=== PATIENT | female | born 1985 | race Caucasian/White ===

== ENCOUNTER 2022-12-06 05:30 | Inpatient (IN) | payer BC ==
[2022-12-06] MEDS ORDERED: Ibuprofen 800 MG TAB PO PRN (18:59)
[2022-12-06] MEDS ORDERED: Methylergonovine 0.2 MG/ML VIAL IM PRN (18:59)
[2022-12-06] MEDS ORDERED: Promethazine HCl 25 MG/ML VIAL IM PRN (18:59)
[2022-12-06] MEDS ORDERED: Diphenoxylate HCl/Atropine Tablet PO PRN ×2 (18:59)
[2022-12-06] MEDS ORDERED: HYDROcodone/Acetaminophen 5/325 mg Tablet PO PRN ×2 (18:59)
[2022-12-06] MEDS ORDERED: Lidocaine 1% (PF) 30 ML VIAL SC PRN (18:59)
[2022-12-06] MEDS ORDERED: Misoprostol 200 MCG TAB PR PRN (18:59)
[2022-12-06] MEDS ORDERED: Carboprost 250 MCG/ML AMP IM PRN (18:59)
[2022-12-06] MEDS ORDERED: Butorphanol Tartrate 1 MG/ML VIAL SLOW IVP PRN (18:59)
[2022-12-06] MEDS ORDERED: hydrALAZINE 20 MG/ML VIAL SLOW IVP PRN (18:59)
[2022-12-06] MEDS ORDERED: NS w/ Oxytocin 30 units 500 ML IV SCH ×2 (18:59)
[2022-12-06] MEDS ORDERED: Ondansetron PF 4 MG/2 ML Vial IVP PRN (18:59)
[2022-12-06] MEDS ORDERED: Acetaminophen 500 MG TAB PO PRN (18:59)
[2022-12-06 19:05] VITALS: BMI 32.0
[2022-12-06] MEDS: Misoprostol 100 MCG TAB VAG SCH (20:33)
[2022-12-06 20:36] LABS: Hemoglobin 14.2 g/dL (12.0-15.5); Mean Corpuscular Hemoglobin 27.1 pg (27.0-33.0); Mean Corpuscular Volume 82.1 fl (81.6-98.3); Mean Platelet Volume 10.7 fl (7.4-10.4); Platelet Count 256 10x3/uL (150-450); RBC Distribution Width 16.6 % (11.5-14.5); Red Blood Cell (RBC) Count 5.24 10x6/uL (3.90-5.03); White Blood Cell (WBC) Count 9.7 10x3/uL (3.5-10.5)
[2022-12-06 21:06] LABS: SARS-CoV-2 NAA Rapid Test Not Detected (NotDetected)
[2022-12-06] MEDS ORDERED: Bupivacaine 0.25% HCL 30 ML VIAL ONE (21:30)
[2022-12-06] MEDS ORDERED: Lidocaine 2% MPF 10 ML AMP (For Epidural Use) ONE (21:30)
[2022-12-06 22:00] LABS: Syphilis Antibody Nonreactive (Nonreactive); Syphilis Antibody Index 0.14 S/CO (<1.00 Non-Reactive)
[2022-12-06 22:01] LABS: HBSAg Index 0.17 S/CO (0-0.99); Hep B Surf Ag Non-Reactive S/CO (NonReactive)
[2022-12-07] MEDS ORDERED: Fentanyl 2 mcg/Bup 0.1% Cadd 100 ML ONE ×2 (01:08→08:50)
[2022-12-07] MEDS: Lactated Ringer's 1,000 ML IV SCH ×3 (01:13→14:40)
[2022-12-07] MEDS ORDERED: Promethazine HCl 25 MG/ML VIAL IM PRN (01:53)
[2022-12-07] MEDS ORDERED: Lactated Ringer's 500 ML IV PRN (01:53)
[2022-12-07] MEDS ORDERED: Acetaminophen 325 MG TAB PO PRN ×2 (01:53→14:15)
[2022-12-07] MEDS ORDERED: Moisturizing Cream (Eucerin) 113 GM JAR TOP PRN (01:53)
[2022-12-07] MEDS ORDERED: ePHEDrine Sulfate 50 MG/10 ML VIAL SLOW IVP PRN (01:53)
[2022-12-07] MEDS ORDERED: Naloxone HCl 0.4 mg/ml Vial IVP PRN ×2 (01:53)
[2022-12-07] MEDS ORDERED: diphenhydrAMINE 50 MG/ML VIAL IVP PRN (01:53)
[2022-12-07] MEDS ORDERED: Ondansetron PF 4 MG/2 ML Vial IVP PRN ×2 (01:53→14:15)
[2022-12-07] MEDS ORDERED: Communication Order-Pharmacy FS SCH (02:00)
[2022-12-07] MEDS ORDERED: Fentanyl 2 mcg/Bupivacaine 0.1% Cassette 100 ML EPIDURAL SCH (02:00)
[2022-12-07] MEDS: Misoprostol 100 MCG TAB VAG SCH ×5 (04:14→20:28)
[2022-12-07] MEDS ORDERED: CEFAZOLIN 1 GM VIAL ONE (13:23)
[2022-12-07] MEDS ORDERED: Famotidine/PF 20 mg/2ml Vial ONE (13:23)
[2022-12-07] MEDS ORDERED: Bicitra 30 ML UDCUP PO PRN (13:27)
[2022-12-07] MEDS ORDERED: Famotidine/PF 20 mg/2ml Vial SLOW IVP PRN (13:27)
[2022-12-07] MEDS ORDERED: Azithromycin 500 MG in Sodium Chloride 0.9% 250 ML 250 ML IVPB SCH (13:30)
[2022-12-07] MEDS ORDERED: CEFAZOLIN 2 GM in Sodium Chloride 0.9% 100 ML IVPB SCH (13:30)
[2022-12-07] MEDS ORDERED: PHENYLEPHRINE-NS 100 MCG/ML 10 ML SYRINGE ONE (13:59)
[2022-12-07] MEDS ORDERED: Oxytocin 10 UNITS/ML VIAL ONE (13:59)
[2022-12-07] MEDS ORDERED: ePHEDrine Sulfate 50 MG/10 ML VIAL ONE (14:03)
[2022-12-07] MEDS ORDERED: Misoprostol 200 MCG TAB PR PRN (14:15)
[2022-12-07] MEDS ORDERED: hydrALAZINE 20 MG/ML VIAL SLOW IVP PRN (14:15)
[2022-12-07] MEDS ORDERED: NS w/ Oxytocin 30 units 500 ML IV SCH (14:15)
[2022-12-07] MEDS ORDERED: Boostrix 0.5 ML (Tdap) VIAL (>/=7 yrs of age) IM ONE (14:15)
[2022-12-07] MEDS ORDERED: Bisacodyl 10 MG SUPP PR PRN (14:15)
[2022-12-07] MEDS ORDERED: Methylergonovine 0.2 MG/ML VIAL IM PRN (14:15)
[2022-12-07] MEDS ORDERED: Lanolin Ointment 7 GM TUBE TOP PRN (14:15)
[2022-12-07] MEDS ORDERED: Ketorolac Tromethamine 30 MG/ML VIAL ONE (14:50)
[2022-12-07 15:06] LABS: Actual Bicarbonate (HCO3a) 21.5 mEq/L (22-28); Base Excess (BEa) -2.6 mEq/L (-2.0 to +3.0); Calcium, Ionized (arterial) 1.25 mmol/L (1.12-1.30); Carboxyhemoglobin (COHb) 1.3 gm% (0.0-3.0); Hemoglobin (Hb) 16.3 g/dL (12.0-16.0); O2 Tension (PaO2), arterial 86.4 mmHg (80.0-100.0); Potassium - ABG Lab 4.4 mmol/L (3.70-5.30); Puncture Site RRA
[2022-12-07] MEDS: Ketorolac Tromethamine 30 MG/ML VIAL IVP PRN (21:14)
[2022-12-07] MEDS: Docusate 100 MG CAP PO SCH (21:18)
[2022-12-07] MEDS: Ferrous Sulfate 325 MG TAB PO SCH (21:19)
[2022-12-07] MEDS ORDERED: Ibuprofen 800 MG TAB PO SCH (22:00)
[2022-12-08] MEDS: Simethicone Chewable 80 MG TAB PO PRN ×2 (00:26→19:36)
[2022-12-08] MEDS: HYDROcodone/Acetaminophen 5/325 mg Tablet PO PRN ×3 (02:21→19:32)
[2022-12-08 04:08] LABS: Hemoglobin 11.1 g/dL (12.0-15.5); Mean Corpuscular HGB CONC 33.3 g/dL (32.0-36.0); Mean Corpuscular Hemoglobin 27.5 pg (27.0-33.0); Mean Corpuscular Volume 82.4 fl (81.6-98.3); Mean Platelet Volume 10.3 fl (7.4-10.4); Platelet Count 235 10x3/uL (150-450); RBC Distribution Width 16.9 % (11.5-14.5); Red Blood Cell (RBC) Count 4.04 10x6/uL (3.90-5.03); White Blood Cell (WBC) Count 12.4 10x3/uL (3.5-10.5)
[2022-12-08] MEDS: Ketorolac Tromethamine 30 MG/ML VIAL IVP PRN (05:29)
[2022-12-08] MEDS: Ferrous Sulfate 325 MG TAB PO SCH ×2 (08:24→21:43)
[2022-12-08] MEDS: Prenatal Vitamin 1 TAB PO SCH (08:45)
[2022-12-08] MEDS: Docusate 100 MG CAP PO SCH ×2 (08:45→21:44)
[2022-12-08] MEDS: Ibuprofen 800 MG TAB PO SCH ×2 (13:27→21:44)
[2022-12-09] MEDS: Ibuprofen 800 MG TAB PO SCH ×3 (05:57→21:10)
[2022-12-09] MEDS: Ferrous Sulfate 325 MG TAB PO SCH ×2 (08:45→20:24)
[2022-12-09] MEDS: Docusate 100 MG CAP PO SCH ×2 (08:53→20:24)
[2022-12-09] MEDS: Prenatal Vitamin 1 TAB PO SCH (08:53)
[2022-12-09] MEDS: HYDROcodone/Acetaminophen 5/325 mg Tablet PO PRN ×2 (12:28→20:24)
[2022-12-09] MEDS: Simethicone Chewable 80 MG TAB PO PRN (20:24)
[2022-12-10] MEDS: Ibuprofen 800 MG TAB PO SCH (05:16)
[2022-12-10 07:52] VITALS: BP 105/61; TEMP 98
[2022-12-10] MEDS: Ferrous Sulfate 325 MG TAB PO SCH (08:49)
[2022-12-10] MEDS: Docusate 100 MG CAP PO SCH (08:49)
[2022-12-10] MEDS: Prenatal Vitamin 1 TAB PO SCH (08:49)
== END 2022-12-10 12:00 | disposition home or self-care (01) | DRG 788 ==
LOC: CSHLD 18:25 → CSHPP 12-07 17:45
PROVIDERS: ADMIT Obstetrics & Gynecology; ATTEND Obstetrics & Gynecology
PROC: 10D00Z1 Extraction of Products of Conception, Low, Open Approach (ICD-10-PCS; principal; 2022-12-07)
PROC: 3E033VJ Introduction of Other Hormone into Peripheral Vein, Percutaneous Approach (ICD-10-PCS; 2022-12-07)
DX: O76 Abnormality in fetal heart rate and rhythm complicating labor and delivery (principal); O69.1XX0 Labor and delivery complicated by cord around neck, with compression, not applicable or unspecified; O32.8XX0 Maternal care for other malpresentation of fetus, not applicable or unspecified; Z3A.39 39 weeks gestation of pregnancy; Z37.0 Single live birth; Z98.890 Other specified postprocedural states; Z20.822 Contact with and (suspected) exposure to COVID-19
CPT/HCPCS: 51702; 82330; 82375; 82805; 82947; 83605; 85027; 86780; 86850; 86900; 86901; 87340; J1885; J2590; J7120; S0020; S0028; U0002